=== PATIENT | male | born 1985 | race Asian ===

== ENCOUNTER 2016-11-06 11:35 | Emergency (ER) | payer OTHER ==
[~2016-11-06] VITALS: Ht 185.4 cm; Wt 117.9 kg
[2016-11-06 12:07] LABS: PLATELET COUNT 406 K/uL (142-355)
== END 2016-11-06 12:30 | disposition home or self-care (01) ==
LOC: ED 11:35
DX: L27.0 Generalized skin eruption due to drugs and medicaments taken internally (principal); T42.1X5A Adverse effect of iminostilbenes, initial encounter
CPT/HCPCS: 85027; 96372; 99282; J1100